=== PATIENT | female | born 1965 | race African-American/Black ===

== ENCOUNTER 2017-05-29 12:58 | Inpatient (IN) | payer OTHER ==
[~2017-05-29] VITALS: Ht 177.8 cm; Wt 162.0 kg
[~2017-05-29 12:58] MED LIST: DAILY MULTIPLE1 EACH PO; HYDROMORPHONE HC4 MG PO; IRON18 MG PO; METFORMIN HCL500 M1 PO; METFORMIN HCL500 MG PO; MILK OF MA400 MG/5 M PO; MIRALAX17 GM PO; NAPROSYN500 MG PO; NAPROXEN500 MG; NAPROXEN500 MG PO; NORCO 5-325 TA1 EACH; NORCO 5-325 TA1 EACH PO; OXYCODONE HCL5 MG PO; ROBAXIN-750750 MG PO; TRAMADOL HCL50 MG PO; VITAMIN C500 M1 PO; XARELTO10 MG PO
--- NOTE | 2017-05-29 16:59 | NUR ---
PATIENT IS A DIRECT ADMIT FOR DR PERERA. PATIENT TO FLOOR VIA WC. TRANSFER TO BED WITH NO DIFFICULTY. PATIENT REPORTED RUQ ABD PAIN. IV STARTED BY CHERIE STAHL. IV FLUID STARTED. PATIENT WAS MEDICATED FOR PAIN. PATIENT DENIES NAUSEA AT THIS TIME. ADMISSION ASSESSMENT COMPLETED. SKIN INTACT, LUNGS CLEAR. ABD SOFT AND TENDER TO PALPATION. PATIENT ORIENTED TO ROOM,PATIENT WAS ALSO EDUCATED ABOUT PAIN CONTROL AND SAFETY. CALL LIGHT IN REACH.
--- NOTE | 2017-05-29 17:51 | NUR ---
DR FARLEY WAS IN TO EVALUATE PATIENT AND DISCUSS PLAN OF CARE. PLAN FOR SURGERY IN THE MORNING. PATIENT WAS MEDICATED FOR 9/10 ADB PAIN. DENIES NAUSEA AT THIS TIME.
--- NOTE | 2017-05-29 18:25 | NUR ---
PATIENT IS A DIRECT ADMIT FOR DR PERERA. PATIENT TO BE NPO AT MIDNIGHT. HAD 2L LR BOLUS. PATIENT HAD MORPHINE AND ANTIEMETIC PRN. DENIES NAUSEA. FLUID D5LR @125ML/HR. PATIENT TOLERATED CLEAR LIQUID WELL. PLAN FOR SURGERY SOMETIMES TOMORROW.
--- NOTE | 2017-05-29 19:05 | NUR ---
SHIFT REPORT RECIEVED. PATIENT RESTING IN BED. APPEARS TO BE UNCOMFORTABLE. REPORTS SEVERE PAIN. DAY SHIFT RN PROVIDED PRN PAIN MEDS PER ORDER. PATIENT WAS ABLE TO DRINK MOST OF THE LIQUIDS PROVIDED FOR DINNER. NO NAUSEA. AAOX3.
--- NOTE | 2017-05-29 20:00 | NUR ---
PATIENT CONTINUES TO APPEAR UNCOMFORTABLE, TENSE AND RESTLESS. RATES PAIN AT 8-9/10. PRN PAIN MEDS PROVIDED. PATIENT PUT ON CONTINUOUS PULSE OX. O2 SAT 97% ON RA. HEAT PACK PROVIDED FOR USE ON ABD. WILL CONTINUE TO MONITOR.
--- NOTE | 2017-05-29 20:30 | NUR ---
PATIENT REPORTS 9/10 PAIN. SHE IS RESTLESS IN THE BED AND APPEARS UNCOMFORTABLE.
--- NOTE | 2017-05-29 20:56 | NUR ---
CONTACTED TO UPDATE HIM ON POOR PAIN CONTROL FOR THIS PATIENT. NEW ORDERS FOR PRN PAIN MEDS WERE GIVEN. VERIFIED USING READ BACK METHOD. IF PAIN CONTROL IS STILL NOT ADEQUATELY ACHIVED, MD REQUEST TO BE CALLED TO DISCUSS BARN MANAGER OPTION.
--- NOTE | 2017-05-29 21:07 | NUR ---
PRN DILAUDID PROVIDED TO THE PATIENT. PATIENT UP TO THE BATHROOM, STEADY ON HER FEET. CONTINUES TO HAVE 9/10 PAIN. LUNGS ARE DIMINISHED BUT CLEAR. PATIENT ON CONTINUOUS PULSE OX, O2 SAT 97% ON RA. ABD IS MILDLY DISTENDED, TENDER IN THE RUQ & RLQ. BOWEL SOUNDS ARE ACTIVE. PATIENT HAS HAD QS OUTPUT SO FAR AND IS TOLERATING CLEAR LIQUIDS. NO NUASEA. PATIENT RESTING IN BED WITH SCDS IN USE. CALL LIGHT IN REACH. IV FLUID INFUSING, SITE WNL.
--- NOTE | 2017-05-29 21:20 | NUR ---
PATIENT FELT NAUSEOUS AND HAD 200ML OF EMESIS AND SOME MORE DRY HEAVES. PRN PHENERGAN PROVIDED. PATIENT'S SISTER IN THE ROOM. SHE REPORTS PAIN 8/10.
--- NOTE | 2017-05-29 21:37 | NUR ---
CHARGE NURSE ROUNDS, PT IN BED, C/O POOR PAIN CONTROL, WAS MEDICATED EARLIER, WITH FAIR PAIN CONTROL. PT AWARE OF NPO STATUS AFTER MIDNIGHT FOR AM SURGERY, NO OTHER REQUESTS
--- NOTE | 2017-05-29 21:50 | NUR ---
PATIENT IS RESTING IN BED. REPORTS NAUSEA HAS PASSED. PAIN IS 8/10. WILL CONTINUE TO MONITOR FOR NAUSEA PRIOR TO GIVING MORE PRN PAIN MEDS.
--- NOTE | 2017-05-29 22:20 | NUR ---
PATIENT REPORT NAUSEA HAS IMPROVED. PRN PAIN MEDS PROVIDED. PATIENT IS ON PULSE OX, O2 SAT 95% ON RA. PATIENT RESTING IN BED. CALL LIGHT IN REACH.
--- NOTE | 2017-05-29 23:15 | NUR ---
PATIENT APPEARS TO BE SLEEPING. O2 SAT 97% ON RA. RR 17. CALL LIGHT IN REACH.
--- NOTE | 2017-05-30 00:51 | NUR ---
PATIENT WOKE UP AND ROLLED OVER, CAUSING INCREASE PAIN. SHE CALLED FOR MORE PAIN MEDICATION, WHICH WAS PROVIDED TO HER. PATIENT UP TO THE BATHROOM. STEADY ON HER FEET. NO NAUSEA. PATIENT BACK TO BED. ABD IS STILL MILDLY DISTENDED, TENDER IN RUQ & RLQ. BOWEL SOUNDS ARE ACTIVE. PATIENT HAS BEEN NPO SINCE MIDNIGHT. MOUTH SWABS PROVIDED TO HER. NO OTHER NEEDS AT THIS TIME.
--- NOTE | 2017-05-30 01:14 | NUR ---
VITALS AND I&OS DONE AND CHARTED. PT NEEDS NOTHING ELSE AT THIS TIME. BEDSIDE TABLE AND CALL LIGHT IN REACH.
--- NOTE | 2017-05-30 01:30 | NUR ---
PATIENT APPEARS TO BE SLEEPING. RR 16. O2 SAT 95% ON RA. CALL LIGHT IN REACH.
--- NOTE | 2017-05-30 02:15 | NUR ---
ORACLE ARCHITECT ON THE FLOOR ASSITING WITH PATIENT CARE. PROVIDED PRN PAIN MEDS PER ORDER.
--- NOTE | 2017-05-30 03:30 | NUR ---
patient reports 8/10 pain. prn pain meds provided. patient denies other needs. call light in reach.
--- NOTE | 2017-05-30 05:17 | NUR ---
PAIN CONTROL WAS A CONCERN AT BEGINING OF THE SHIFT. NEW ORDERS FOR PRN PAIN MEDS WERE RECIEVED AND PATIENT HAS BEEN ABLE TO REST PART OF THE NIGHT. PRN PAIN MEDS GIVEN X6. NAUSEA WITH EMESIS X1, PRN PHENERGAN REDUCED THE NAUSEA. PATIENT DENIES NAUSEA THIS MORNING. SBA TO THE BATHROOM. PATIENT CALLS APPROPRIATELY. SCDS IN USE. IV FLUIDS. ABD IS MILDLY DISTENDED, TENDER IN RUQ & RLQ, BOWEL SOUNDS HYPOACTIVE. NPO SINCE MIDNIGHT. SURGERY SCHEDULED FOR 0800.
--- NOTE | 2017-05-30 06:02 | NUR ---
PATIENT REPORTS PAIN 8/10. SHE WAS SLEEPING WELL, BUT WHEN SHE AWOKE SHE HAD INCREASED PAIN. PRN PAIN MEDS PROVIDED. PRE-PROCEDURE CHECK LIST PARTIALLY COMPLETED. PATIENT GIVEN INSTRUCTION ON PRE-OP CLENSE WITH WIPES. PATIENT UP TO THE BATHROOM. FRESH ATTENDS AND GOWN PROVIDED.
--- NOTE | 2017-05-30 07:00 | NUR ---
patient reports 7/10 pain. prn pain meds provided. no nausea.
--- NOTE | 2017-05-30 07:35 | NUR ---
REPORT RECIEVED FROM CHERIE BACA. PT AWAKE AND UP TO RESTROOM. IVF RUNNING. GIVEN PAIN MEDS BY NIGHT RN AT 0700. SWITCHED BEDS FOR NON TRAPEZZE BED. LR HANGING. BS 143, INSULIN NOT GIVEN. SURGERY RN HERE TO CASEWORK MANAGER PT. WIPE DOWN DONE.
--- NOTE | 2017-05-30 09:20 | NUR ---
05/30/17 0920 Yuko Fairchild 0915 PT ARRIVED IN PACU SLEEPY. BLOOD SUGAR 142.
--- NOTE | 2017-05-30 10:34 | NUR ---
PT TO FLOOR VIA STRETCHER WITH CHERIE SHOOK. PT PAINFUL UPON SLIDING TO BED. ABLE TO DO ON OWN THOUGH. SISTER IN ROOM. STATES THE PAIN IS BETTER THAN BEFORE SURGERY. LAP SITES X4 SLIGHT AMT DRAINAGE BUT WELL APPROX. STERI STRIPS INTACT. PT DOZING INTERMITTENTLY. 3L NC DUE TO DESATS WHEN SLEEPING.
--- NOTE | 2017-05-30 11:07 | OR ---
[facility] [address] [place], [place] [address] Signed DATE OF OPERATION: 05/29/2017 SURGEON: Oksana Perera MD PREOPERATIVE DIAGNOSES: 1. Acute calculous cholecystitis. 2. Morbid obesity. POSTOPERATIVE DIAGNOSES: 1. Acute calculous cholecystitis. 2. Morbid obesity. PROCEDURES: 1. Laparoscopic cholecystectomy with intraoperative cholangiogram (prolonged difficult). 2. Surgeon-directed fluoroscopy. ANESTHESIA: General endotracheal (Sol Waldrop CRNA). INDICATION: This 52-year-old obese black woman is a patient of Stephanie Wiley and Dr. Sammy Grimm. I was called yesterday by FRANK Reaves, regarding the patient, who is having acute cholecystitis. A gallbladder ultrasound had been performed showing multiple gallstones. She has been admitted, given fluid resuscitation, intravenous antibiotics, parenteral pain medication and so forth and is now to undergo cholecystectomy preferred by laparoscopic approach. The risks of bleeding, infection, bile duct injury, need for open procedure and other unforeseen complications was reviewed in detail. She understands and wished to proceed. FINDINGS: The patient is quite morbidly obese. Predictably, there was a fair amount of fat associated with the gallbladder. The gallbladder was acutely inflamed. A stone was noted in the cystic duct as well, which was milked in a retrograde fashion and cholangiogram that was performed showed no sign of filling defects within the biliary tree otherwise. Complete cholecystectomy was accomplished without complication. The operation was prolonged, complicated, and difficult on the basis of her obesity. DESCRIPTION OF PROCEDURE: The patient was brought to the operating room and given a general endotracheal anesthetic. She had been on Ancef continually. Sequential compression device stockings Electronically Signed By: OKSANA PERERA MD 05/30/17 1107 PATIENT NAME: EDILBERTO MARY OPERATIVE REPORT DATE OF : 61 PHYSICIAN: OKSANA PERERA MD REPORT #: [id number] REPORT IS CONFIDENTIAL AND NOT TO BE RELEASED WITHOUT AUTHORIZATION [facility] [address] [place], [place] [address] Signed were used and heparin subcutaneously administered. The abdomen was prepared with a chlorhexidine solution and draped sterilely. An infraumbilical incision was made and using an open Chelsea cannula technique, pneumoperitoneum was achieved to a level of 14 mmHg of carbon dioxide gas. Intraabdominal inspection showed no sign of ascites or carcinomatosis. The apex of the gallbladder was visible and noted to be acutely inflamed. Three additional trocars were placed in usual configuration in the subxiphoid, right midclavicular, and right anterior axillary line. The gallbladder was elevated cephalad. The liver was quite remarkably normal. The adhesions to the undersurface of the gallbladder were taken down with blunt and electrocautery dissection ultimately better visualizing the infundibulum. A fair amount of fat was noted around the infundibulum and using blunt and electrocautery dissection, the area was dissected free ultimately identifying a dominant cystic artery. This was doubly clipped and divided. Ultimately, the cystic duct was identified as well and there appeared to be a bulge in the proximal portion of the cystic duct, most consistent with an intracystic duct stone. The clips were applied at the gallbladder cystic duct junction and a transverse choledochotomy made in the cystic duct. With retrograde milking technique, the stone was allowed to egress from the cystic duct itself. This was passed off the table of course. Using the Obrien-type cholangiocatheter, intraoperative cholangiography was undertaken showing free flow of contrast in the biliary tree with prompt emptying into the duodenum. There was narrowing in the region of the distal common duct, but no sign of filling defect and no impediment to flow in any way. The catheter was removed. The cystic duct was triply clipped and divided and the gallbladder dissected free in a retrograde fashion using electrocautery. The gallbladder was pexed in an endobag and extracted through the infraumbilical port site. The gallbladder was opened on the back table by the circulating nurse and had innumerable multifaceted yellow, large and small gallstones. Reinspection of subhepatic space showed no sign of bile leak, bleeding, or other problems. Excess irrigation fluid was suctioned free and the trocars were removed under direct visualization showing no sign of bleeding. The infraumbilical fascial incision was reapproximated with interrupted 0 Vicryl suture. All wounds were copiously irrigated and 20 mL of 0.25% Marcaine without epinephrine was injected locally for postoperative analgesic effect. The skin was closed with interrupted 3-0 Vicryl. Steri-Strips were applied. The patient was ultimately extubated and transferred to recovery room in good condition having suffered no complication. The operation was complicated and difficult on the basis of her obesity and extent of inflammation, but was accomplished safely. Oksana Perera MD Electronically Signed By: OKSANA PERERA MD 05/30/17 1107 PATIENT NAME: EDILBERTO MARY OPERATIVE REPORT DATE OF : 61 PHYSICIAN: OKSANA PERERA MD REPORT #: [id number] REPORT IS CONFIDENTIAL AND NOT TO BE RELEASED WITHOUT AUTHORIZATION [facility] [address], [place] [address] Signed /[facility] /[id number] cc: LUIS Reaves MD Electronically Signed By: OKSANA PERERA MD 05/30/17 1107 PATIENT NAME: EDILBERTO MARY OPERATIVE REPORT DATE OF : 61 PHYSICIAN: OKSANA PERERA MD REPORT #: [id number] REPORT IS CONFIDENTIAL AND NOT TO BE RELEASED WITHOUT AUTHORIZATION
--- NOTE | 2017-05-30 12:43 | NUR ---
CALLED DR PERERA REGARDING BS OF 163. ORDERED 4 UNITS PRN FOR BS GREATER THAN 150.
--- NOTE | 2017-05-30 13:22 | NUR ---
PT RESTING IN BED. NEW IV TO RIGHT UPPER ARM, IV LASIX GIVEN. LUNG SOUND WHICH EXPIRATORY WHEEZE AND RHONCHI, IMRPOVED FROM THIS MORNING. PT DENIES PAIN, STATES TYLENOL WAS EFFECTIVE IN CONTROLLING PAIN. NO ACUTE CHANGES. PT DENIES OTHER NEEDS AT THIS TIME.
--- NOTE | 2017-05-30 13:25 | NUR ---
PT SITTING UP IN BED. ADMINISTERED PAIN MED. AND AB. PT STATES SHE WILL GET UP AND TRY USING THE RESTROOM AFTER MED KICKS IN. PT ATE MOST OF LUNCH WITH NO NAUSEA.
--- NOTE | 2017-05-30 15:33 | NUR ---
PT APPEARS TO BE SLEEPING COMFORTABLY.
--- NOTE | 2017-05-30 17:17 | NUR ---
PT SITTING UP IN BED EATING DINNER. PT REPORTS NO NAUSEA. INSULIN WITNESSED BY CHERIE STAHL AND CHERIE ROSALES. PT APPEARS COMFORTABLE.
--- NOTE | 2017-05-30 17:44 | NUR ---
PT HAD SURGERY THIS MORNING. LAPS X4. WELL APPROX. PT PAIN CONTROLLED WITH NORCO X2 AND IV DILAUIDID RATES PAIN 6-8\10. TOLERATING ADA DIET. UO QS. O2 NC FOR DESATS WHILE SLEEPING. SBA TO RESTROOM. NO N\V.
--- NOTE | 2017-05-30 18:34 | NUR ---
GOT PATIENT A GLASS OF APPLE JUICE. AND ALSO ICE WATER.
--- NOTE | 2017-05-30 19:00 | NUR ---
SHIFT REPORT RECIEVED AT BEDSIDE. PATIENT RESTING IN BED. TOLERATING RA, O2 95%. DENIES NAUSEA. PAIN 10/20. FRIEND AT BEDSIDE. CALL LIGHT IN REACH.
--- NOTE | 2017-05-30 20:14 | NUR ---
PATIENT UP TO THE BATHROOM. STEADY ON HER FEET BUT PAINFUL WITH MOVEMENT. LAP SITES HAVE SMALL AMOUNT OF DRIED DRAINAGE. STERI STRIP ON RLQ WAS NOT IN PLACE, GAUZE APPLIED TO THIS LAP SITE. PATIENT DENIES NAUSEA. O2 SAT 94% ON RA. PATIENT DENIES NEEDS AT THIS TIME. BACK IN BED WATCHING TV.
--- NOTE | 2017-05-30 21:30 | NUR ---
EVENING MEDS GIVEN PER ORDER. ALEXIS IS RESTING IN BED. PAIN CONTINUES TO BE A SHARP CONSTANT PAIN AT 7/10. ICE PACK PROVIDED. PATIENT IS AAOX3. APPEARS UNCOMFORTABLE AND RESTLESS IN THE BED. O2 SAT 97% ON RA. LUNGS ARE CLEAR. ABD IS MODERATELY DISTENDED. BOWEL SOUNDS ACTIVE. LAP SITES HAVE NO NEW DRAINAGE AND ARE WELL APPROXIMATED. PATIENT TOLERATING ADA DIET. NO NAUSEA. SCDS IN USE.
--- NOTE | 2017-05-30 22:00 | NUR ---
BLOOD GLUCOSE WNL. NO INSULIN REQUIRED PER ORDERS.
--- NOTE | 2017-05-30 22:40 | NUR ---
PATIENT REPORTS 7/10 PAIN. PRN NORCO PROVIDED PER ORDER. PATIENT PROVIDED SOME CRACKERS TO EAT WITH THE MEDICATION. SHE ALSO REQUEST A SANDWICH BOX. SYSTEMS PROJECT MANAGER NOTIFIED FOR THIS. PATIENT HAS NO OTHER NEEDS. REPORTS SOME PAIN RELIEF FROM THE ICE PACK.
--- NOTE | 2017-05-30 23:00 | NUR ---
SANDWICH BOX PROVIDED. PATIENT CONTINUES TO BE RESTLESS IN THE BED AND REPORTS PAIN 8/10. ENCOURAGED HER TO TRY TO EAT A SMALL AMOUNT AND ALLOW PO PAIN MEDS TO TAKE EFFECT. WILL CONTINUE TO MONITOR. ICE PACK REFILLED.
--- NOTE | 2017-05-30 23:30 | NUR ---
PATIENT ATE HER SNACKS WITHOUT ANY NAUSEA. PATIENT HAS BEEN COUGHING SOME AND THIS IS CAUSING INCREASED PAIN. PATIENT UNABLE TO REST. PAIN 8/10. PRN PAIN MEDS PROVIDED.
--- NOTE | 2017-05-31 01:00 | NUR ---
PATIENT RESTING EYES CLOSED. RR 17. O2 SAT 94% ON RA. CALL LIGHT IN REACH.
--- NOTE | 2017-05-31 02:22 | NUR ---
PATIENT CALLED TO USE THE BATHROOM. 1 PERSON ASSIST/ STANDBY. PATIENT IS BACK IN BED. CALL LIGHT WITHIN REACH. ICE WATER REFILLED.
--- NOTE | 2017-05-31 02:30 | NUR ---
PATIENT REPORTS PAIN 8/10 AFTER GETING UP TO USE THE BATHROOM. PRN NORCO PROVIDED. PATIENT REPORTS SOME DRAINAGE FROM LAP SITE THAT WAS ON HER GOWN AND STILL OPERATOR GIN ASSISTED HER WITH CHANGING. RN NOTED LAP SITES TO BE WNL, NO NEW DRAINAGE VISABLE. REENFORCED SECOND RLQ LAP SITE WITH GAUZE DUE TO STERI STRIP FALLING OFF. PATIENT IS STILL USING AN ICE PACK ON THIS AREA. DENIES NAUSEA.
--- NOTE | 2017-05-31 03:51 | NUR ---
PATIENT IS RESTING IN BED, WATCHING TV. REPORTS PAIN 7/10. AND SAYS SHE IS HAVIGN TROUBLE SLEEPING BECAUSE SHE IS HAVING HOT AND COLD FLASHES. DENIES NEED FOR ROOM TEMP TO BE CHANGED OR WARM BLANKET. DENIES ANY NEEDS. ICE PACK IN USE.
--- NOTE | 2017-05-31 05:30 | NUR ---
PATIENT RESTING IN BED WATCHING TV. STATED SHE SLEPT FOR A LITTLE WHILE. PAIN 10/20. PRN TORADOL PROVIDED. IV FLUIDS REPLACED, IV SITE WNL. COFFEE PROVIDED PER PATIENT REQUEST. NO OTHER REQUEST.
--- NOTE | 2017-05-31 05:46 | NUR ---
PATIENT SLEPT ON AND OFF THROUGHOUT THE NIGHT. PAIN CONSISTENTLY 7-8/10. PRN NORCO X3. PRN TORDOL AND DILAUDID X2. NO NAUSEA. ATE DINNER AND SOME SNACKS. ORAL INTAKE IS GOOD. SHE WOULD LIKE TO SHOWER TODAY. SBA TO BATHROOM. LAP SITE X4, WNL. GAUZE REENFORCED RLQ SITES X2. BOWEL SOUNDS ARE ACTIVE. ABD IS MODERATELY DISTENDED AND TENDER. SCDS IN USE. IV FLUIDS INFUSING, SITE WNL.
--- NOTE | 2017-05-31 06:42 | NUR ---
PRN PAIN MEDS PROVIDED FOR PAIN /10. PATIENT ORDERED BREAKFAST AND VISHAL LOAIZA COMPLETED HER VS. PATIENT UP TO THE BATHROOM.
--- NOTE | 2017-05-31 07:18 | NUR ---
REPORT RECEIVED FROM CHERIE BACA. PT SITTING UP IN BED WATCHING TV. APPEARS COMFORTABLE, BUT STATES PAIN IS CONSISTENTLY 7/10. PT DENIES OTHER NEEDS AT THIS TIME.
--- NOTE | 2017-05-31 07:49 | NUR ---
PATIENT WAS UP WAITING FOR BREAKFAST, BOARDS UPDATED, AM CARE DONE.
--- NOTE | 2017-05-31 09:54 | NUR ---
PT GIVEN A HOT PACK. VS TAKEN AND DOCUMENTED. PT WOULD LIKE A PAIN PILL AND HAS NO OTHER NEEDS. WILL INFORM RN OF PT REQUEST. CALL LIGHT IS IN REACH.
--- NOTE | 2017-05-31 10:03 | NUR ---
PT CALLED FOR PAIN MEDICATION. STATES THAT AFTER SHE ATE HER BREAKFAST WHICH INCLUDED [place] AND EGGS HER PAIN INCREASED. ADVISED HER TO TAKE IT EASY ON INTAKE, PARTICULARLY HIGH FAT ITEMS FOR A LITTLE WHILE. PT ALSO SAT UP IN BED WITHOUT USING BED AND WAS QUITE SORE. ADMINISTERED MEDS AND ASSESSMENT DONE. PT DENIES FURTHER CONCERNS.
--- NOTE | 2017-05-31 12:14 | NUR ---
4 UNITS INSULIN WITNESSED BY CHERIE STAHL AND CHERIE HAIR. PT SITTING UP IN BED EATING LUNCH. APPEARS COMFORTABLE. NO OTHER NEEDS AT THIS TIME.
--- NOTE | 2017-05-31 13:13 | NUR ---
DR PERERA IN TO SEE PT. WILL INCREASE PAIN MEDICATION DOSE AND MAY BE ABLE TO GO HOME LATER THIS AFTERNOON.
[2017-05-31] MEDS ORDERED: HYDROCODON-ACE1 EAC8 PO (13:15)
[2017-05-31] MEDS ORDERED: MOTRIN IB200 MG PO (13:18)
--- NOTE | 2017-05-31 13:31 | NUR ---
PT UP TO BATHROOM. ACTIVITY ENCOURAGED. PT DENIES SOB OR DIZZINESS. PT TOLERATED WELL. SITTING UP IN BED.
--- NOTE | 2017-05-31 14:10 | NUR ---
PAIN MEDS ADMINISTERED PER ORDER. HEAT PACK REPLACED ON ABDOMEN. PT SITTING UP IN BED. ENCOURAGED TO AMBULATE.
--- NOTE | 2017-05-31 14:48 | NUR ---
PT STATES THE PAIN MEDICATION IS STARTING TO KICK IN AND WILL GET UP AND WALK IN A BIT. HOLDING BLANKET TO STOMACH FOR SUPPORT WHEN SHE COUGHS. INCISIONS WELL APPROX. WITH NO NEW DRAINAGE.
--- NOTE | 2017-05-31 16:06 | NUR ---
PT REPORTS PAIN IS STILL 7/10. CONSISTENTLY RATES 7-8/10 WHILE RESTING. APPEARS COMFORTABLE. ON PHONE AND MOVING AROUND BED INDEPENDENTLY
--- NOTE | 2017-05-31 16:32 | NUR ---
PT UP TO WALK IN HALLWAY X1 LAP AROUND UNIT. STOPPED TO TAKE BREAK X2. PT REPORTS NOT USUALLY WALKING LONG DISTANCES. DENIED SOB AND DIZZINESS DURING WALK. REPORT MILD DIZZINESS WHEN BACK TO ROOM. WASHED FACE AND BRUSHED TEETH INDEPENDENTLY. LINENS STRAIGHTENED. PT STATES WOULD LIKE TO STAY FOR NIGHT. PAIN STILL 7-11/20.
--- NOTE | 2017-05-31 18:11 | NUR ---
PT SBA TO BATHROOM. UP X1 LAP IN HALLWAY, NEEDED BREAKS DUE TO BASELINE LOW ACTIVITY. PERFORMED SELF-CARE INDEPENDENTLY TODAY. NORCO INCREASED. GETS X2 10/325. STILL CONSISTENTLY RATES PAIN 7-8/10. BUT APPEARS COMFORTABLE. PLAN TO DC TO HOME WITH SISTERS TOMORROW.
--- NOTE | 2017-05-31 19:00 | NUR ---
SHIFT REPORT RECIEVED AT BEDSIDE. PATIENT RESTING IN BED WATCHING TV. FRESH WATER PROVIDED. NO OTHER NEEDS AT THIS TIME. CALL LIGHT IN REACH.
--- NOTE | 2017-05-31 19:48 | NUR ---
CALL PLACED TO DR PERERA AND INFORMED HIM PT HAD NOT DISCHARGED HOME. WANTS TO LEAVE [place]. NO NEW ORDERS.
--- NOTE | 2017-05-31 20:34 | NUR ---
PATIENT UP TO THE BATHROOM. SBA. SALINE LOCKED PATIENT. ORAL INTAKE IS ADEQUATE AND OUTPUT IS QS. PATIENT HAS A COUGH, SHE HAS BEEN SPLINTING WHEN COUGH. ABD IS MODERATELY DISTENDED. TENDER. BOWEL SOUNDS ACTIVE. PATIENT REPORTS PASSING GAS. NO NAUSEA. APPETITE IS GOOD. SCDS IN USE. LAP SITES X4 ARE WNL, NO NEW DRAINAGE. PATIENT REPORTS PAIN 7/10. NO OTHER NEEDS AT THIS TIME. ICE PACK PROVIDED.
--- NOTE | 2017-05-31 22:30 | NUR ---
PRN PAIN MEDS GIVEN FOR 7/10 PAIN. FRESH ICE PACK PROVIDED. NO OTHER NEEDS AT THIS TIME.
--- NOTE | 2017-06-01 00:35 | NUR ---
patient appears to be sleeping. rr 17. call light in reach.
--- NOTE | 2017-06-01 01:30 | NUR ---
[facility] VISHAL LOAIZA ASSISTED PATIENT.
--- NOTE | 2017-06-01 03:00 | NUR ---
PRN NORCO GIVEN FOR 8/10 PAIN. PATIENT WAS UP TO THE BATHROOOM AND HAS BEEN COUGHING, THIS IS CAUSING INCREASED SHARP PAIN.
--- NOTE | 2017-06-01 04:34 | NUR ---
PATIENT SLEPT ON AND OFF THROUGHOUT THE NIGHT. SBA. SCDS. IV SL. TOLERATING ADA DIET AND ORAL FLUIDS. LAP SITES X4, WNL. NO NEW DRAINAGE. PAIN CONSISTENTLY 7-8/10. PRN NORCO GIVEN X3.
--- NOTE | 2017-06-01 05:00 | NUR ---
PATIENT UP TO THE BATHROOM WHILE COLD ROLLING SUPERVISOR IN ROOM. COMPLAINING OF 9/10 PAIN. DISCUSSED AVAILABLE TIME FRAME FOR PAIN MEDICATION. PATIENT RESTING IN BED NOW.
--- NOTE | 2017-06-01 07:20 | NUR ---
PATIENT UP TO BATHROOM WITH STAND BY ASSIST. PATIENT UP TO SINK TO WASH HANDS AND FACE THEN TO CHAIR. ORDERED PATIENT HER BREAKFAST. FRESH ICE PACK, WARM BLANKET, AND ICE WATER GIVEN. CALL BUTTON IN REACH. NO OTHER NEEDS AT THIS TIME.
--- NOTE | 2017-06-01 07:42 | NUR ---
PATIENT UP TO RECLINER THIS MORNING, LUNG SOUNDS CLEAR. LAP SITES C/D/I. PATIENT REPORTS PAIN AT 6 WHEN STILL BUT WHEN COUGHING AND MOVING REPORTS PAIN AT 8/10 ON PAIN SCALE. ICE TO ABDOMEN. CBG 101, NO INSULIN COVERAGE NEEDED. DISCUSSED POC FOR DAY. FULL BODY ASSESMENT DONE.
--- NOTE | 2017-06-01 07:54 | NUR ---
CALL TO DR. PERERA IN REGARDS TO PATIENT NOT HAVING A BM SINCE , POST OP 2 DAYS NOW AND FOR PAIN CONTROL RATES PAIN 8/10 WITH MOVMENT PAIN MEDICAITON ADMINISTERED 0700 THIS MORNING.
--- NOTE | 2017-06-01 08:04 | NUR ---
DR. PERERA RETURNED PHONE CALL, DISCUSSED PATIENT OPIATE HX. DISCUSSED CONCERNS OF PATIENT PAIN PROPORTION WITH PAIN MEDICAITON ADMINISTERED. BOWEL TONES ACTIVE, BUT LOCATES PAIN TO RLQ TO MID QUADRANT. NEW ORDERS FOR CBC AND BMP TO BE DRAWN NOW.
--- NOTE | 2017-06-01 09:32 | NUR ---
DR. PERERA TO FLOOR. THIS NURSE PUT IN WRONG ORDER FROM CHEM LAB TO BE DRAWN, CHANGED TO CHEM 20. DR. PERERA QUESTIONED WHY MOTRIN HAS NOT BEEN ADMINISTERED PRN FOR PAIN CONTROL SINCE PATIENT WAS ADMITTED, ADMINISTERED 600 MG PO MOTRIN RIGHT AWAY AND CALLED LAB TO REQUEST ADD ON FOR OTHER LAB VALUES NEEDED FOR A CHEM 20.
--- NOTE | 2017-06-01 09:39 | NUR ---
PATIENT SITTING IN CHAIR THIS CATASTROPHE CLAIMS SUPERVISOR PUT FRESH LINENS ON BED. IN ROOM TO TALK TO PATIENT. 1 PERSON ASSIST TO BATHROOM, PATIENT NEEDED AOTHER PAD FOR UNDERWEAR. THIS CATASTR[place]HE CLAIMS SUPERVISOR ASSISTED PATIENT BACK TO BED. RN IN ROOM TO GIVE MEDS. FRESH ICE WATER, NEW ICE PACK GIVEN. VITALS DONE AND ROOM TIDIED. NO OTHER NEEDS AT THIS TIME.
--- NOTE | 2017-06-01 09:43 | NUR ---
ADDRESSED BOWEL CARE WITH DR. PERERA. PATIENT UNABLE TO HAVE BM SINCE 15, PATIENT PASSING GAS. HAS BEEN TAKING LARGE AMOUNTS OF PAIN MEDICATION FOR PAIN CONTROL. VERBAL ORDER FOR MILK OF MAG.
--- NOTE | 2017-06-01 12:10 | NUR ---
1 PERSON ASSIST FROM BATHROOM BACK TO BED. FRESH WATER GIVEN. CALL LIGHT IN REACH, NO OHTER NEEDS AT THIS TIME.
--- NOTE | 2017-06-01 13:00 | NUR ---
PATIENT REPORTS PAIN FEELS IMPROVED WITH MOTRIN, STATES " I THINK I AM READY TO GO HOME, MY SISTER IS ON HER WAY IN". PROVIDED SISTER WITH SCRIPT TO FILL. PATIENT RESTING BACK IN BED. RATES PAIN 5/10 ON PAIN SCALE.
--- NOTE | 2017-06-01 14:36 | NUR ---
PATIENT SITTING UP IN BED, VITALS DONE. NEW ICE IN ICE PACK, FRESH ICE IN WATER. CALL LIGHT IN REACH. PATIENT MOANING QUITE A LOT. NO OTHER NEEDS AT THIS TIME.
--- NOTE | 2017-06-01 16:45 | NUR ---
PROVIDED PATIENT WITH DISCHARGE EDUCATION, DISCUSSED MEDICATIONS THAT PATIENT IS TAKING. NOTED NO MED RECONCILIATION WAS DONE. ALERTED LOUISA IN PHARMACY, AND HAD [facility] FAX MEDICATION LISTS TO FLOOR. PROVIDED PATIENT WITH NORCO BEFORE LEAVING HOME, AND ICE PACKS. PATIENT VERBALIZED UNDERSTANDING TO SIDE EFFECTS, AND PROVIDED EDUCATION WITH PREVENTING CONSTIPATION. ALSO DISCUSSED S/S OF INFECTION. VS STABLE. 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
--- NOTE | 2017-06-01 16:57 | NUR ---
Note of importance: Unfortunately, patient's medications were not reconciled by pharmacist until patient was preparing for discharge. Prior to discharge, pharmacist discovered that the patient's current medication profile included acute pain medications filled almost two years ago. Patient is not currently taking ANY pain medications. Her only chronic medication is metformin. Due to the inacurate medication reconciliation report, the narcotic pain medication usage of this patient was misrepresented.
--- NOTE | 2017-06-01 17:28 | NUR ---
CALLED AND INFORMED DR. PERERA OF ERROR IN NOT HAVING MEDICATIONS UPDATED ON PROFILE AND MADE HIM AWARE THAT PATIENT IS NOT AN EVERYDAY OPIATE USER. VERBALIZED UNDERSTANDING.
--- NOTE | 2017-06-02 08:34 | DS ---
[facility] [address] [place], [place] [address] Signed ADMISSION DATE: 05/29/2017 DISCHARGE DATE: 06/01/2017 REASON FOR ADMISSION: This 52-year-old morbidly obese black woman is admitted directly to the hospital for acute calculous cholecystitis. She is a patient of FRANK Reaves from Dr. Grimm's office and since Thursday (day of admission Thursday), she has had significant right upper abdominal and epigastric pain. She did not seek medical attention until 3 days prior to admission, where she was noted to have worsening pain. She has had issues of diverticulitis in the past and thought it may be related to that. She was seen by FRANK Reaves as an outpatient and subsequently underwent a gallbladder ultrasound, which showed multiple gallstones, but no thickened gallbladder wall. She was markedly uncomfortable and is admitted for further evaluation and care as a direct admit upon the referral of FRANK Reaves. PERTINENT PHYSICAL EXAMINATION: GENERAL: Very large black woman, who looks to be quite uncomfortable. She does not look systemically toxic. MOUTH: Mucous membranes are dry. NECK: Trachea midline. CHEST: Clear. HEART: Regular without murmur. ABDOMEN: Obese, but soft. There is tenderness in right upper abdomen, but no sign of mass. No ascites. LABORATORY STUDIES: Showed a white count of 10.2 and hematocrit 41.3. Chem profile was normal. HOSPITAL COURSE: She was admitted, given fluid resuscitation, intravenous antibiotics, and parenteral pain medication. She had a fair amount of pain. She was somewhat clinically dehydrated upon admission. The following morning on Thursday, she underwent laparoscopic cholecystectomy with intraoperative cholangiogram. She was found to have acutely inflamed gallbladder and normal cholangiogram. Notably, there was a stone in the cystic duct, which was removed with retrograde milking of the duct. Remaining cholangiogram was normal. The gallbladder once excised showed innumerable yellow mulberry and multifaceted gallstones. Electronically Signed By: OKSANA PERERA MD 06/02/17 0834 PATIENT NAME: EDILBERTO MARY DISCHARGE SUMMARY DATE OF : 61 PHYSICIAN: OKSANA PERERA MD REPORT #: [id number] REPORT IS CONFIDENTIAL AND NOT TO BE RELEASED WITHOUT AUTHORIZATION [facility] [address] [place] [id number] Signed The liver was normal in appearance. Postoperative course was marked by incisional pain, probably worsened by her underlying chronic pain syndrome. She was maintained with intravenous antibiotics as well as parenteral pain medication and also oral medication including Motrin, which was particularly helpful to her. By the time of discharge, she is ambulating well, tolerating a regular diet, had tolerable incisional pain and no evidence of wound problems. A CBC and a Chem profile performed the day of discharge showed no untoward findings. DISCHARGE MEDICATIONS: Her discharge medications will include Elizabeth 10/325, one to two tablets p.o. q.4 hours p.r.n. pain #14, also Motrin 600 mg p.o. q.6 hours as needed for pain. She will resume her usual medication of vitamin C 500 mg daily, metformin ER 500 mg q.day in time, oxycodone 5 mg p.o. q.3 hours as needed for pain, milk of magnesia 30 mL p.o. h.s. as needed for constipation, also MiraLAX 17 g daily as well as multivitamin one p.o. daily. She will hold Naprosyn 500 mg b.i.d. while taking the Motrin and is permitted to resume her tramadol 50 mg p.o. q.6 hours as needed for back pain. She will additionally take Robaxin 750 mg p.o. 4 times a day as needed for breakthrough back pain. We are hopeful and optimistic that early some of her back pain will be mitigated by having cholecystectomy for symptomatic gallstones. DISCHARGE DIAGNOSES: 1. Acute calculous cholecystitis. 2. Morbid obesity. 3. Chronic back pain and probable chronic pain syndrome. 4. Low-grade diabetes without need for insulin. FOLLOWUP PLAN: She is return to see me in approximately a month. She is instructed to walk on a daily basis. She should lift no more than 20 pounds for 2 weeks. Oksana Perera MD /[facility] /[id number] Electronically Signed By: OKSANA PERERA MD 06/02/17 0834 PATIENT NAME: EDILBERTO MARY DISCHARGE SUMMARY DATE OF : 61 PHYSICIAN: OKSANA PERERA MD REPORT #: [id number] REPORT IS CONFIDENTIAL AND NOT TO BE RELEASED WITHOUT AUTHORIZATION [address] [address] Signed cc: LUIS Reaves MD Electronically Signed By: OKSANA PERERA MD 06/02/17 0834 PATIENT NAME: EDILBERTO MARY DISCHARGE SUMMARY DATE OF : 61 PHYSICIAN: OKSANA PERERA MD REPORT #: [id number] REPORT IS CONFIDENTIAL AND NOT TO BE RELEASED WITHOUT AUTHORIZATION
--- NOTE | 2017-06-02 08:34 | HP ---
[facility] [address] [place], [place] [address] Signed ADMISSION DATE: 05/29/2017 REASON FOR ADMISSION: Acute calculous cholecystitis. HISTORY: This 52-year-old large black woman is admitted directly to the hospital for acute calculous cholecystitis. She was a patient of FRANK Reaves from Dr. Grimm's office and has had since Thursday (today is Thursday) significant right upper abdominal and epigastric pain. She did not seek medical attention until 3 days ago when she has worsening persistent pain. She says she has an ongoing issue of diverticulitis and thought this may be related to that. She was seen by Stephanie Wiley as an outpatient and subsequently underwent gallbladder ultrasound today, which showed multiple gallstones and not a thickened gallbladder wall, but findings clinically consistent with acute cholecystitis. On the basis of this, I directly have admitted her to the hospital for further evaluation and care. PAST MEDICAL HISTORY: Includes gdx-iurqguu-fzovslali diabetes mellitus. She also has obesity. Her most recent blood sugar was 88. She has undergone left total knee arthroplasty in July 2015 and prior right knee arthroplasty as well. This was by Dr. Naveed Parisi. REVIEW OF SYSTEMS: She denies any shortness of breath or chest pain. She is having no dysphagia, dysuria. Denies any hematemesis or blood per rectum. Her pain is mostly in the right upper abdomen extending into the right posterior thoracic area. SOCIAL HISTORY: She lives with some of her sisters in the [place] area. One of her other sisters (Ms. Jaime) attends to her at this time. She does not work to my knowledge. CURRENT MEDICATIONS: Include: 1. Vitamin C 500 mg daily. 2. Dilaudid 4 mg tablet p.o. p.r.n. back pain. 3. Milk of magnesia 30 mL p.o. at bedtime as needed for constipation. 4. Metformin ER 500 mg NM daily. 5. Robaxin 750 p.o. q.i.d. for moderate breakthrough pain of her back. 6. Daily multivitamin. Electronically Signed By: OKSANA PERERA MD 06/02/17 0834 PATIENT NAME: EDILBERTO MARY HISTORY AND PHYSICAL DATE OF : 61 PHYSICIAN: OKSANA PERERA MD REPORT #: [id number] REPORT IS CONFIDENTIAL AND NOT TO BE RELEASED WITHOUT AUTHORIZATION [facility] [address] [place], [place] [address] Signed 7. Naprosyn 500 mg p.o. b.i.d. ALLERGIES: She is considered to have a latex allergy (skin irritation). PHYSICAL EXAMINATION: GENERAL: Large black woman, who looks to be quite uncomfortable at this time. She does not look systemically toxic. HEENT: Mucous membranes are dry. NECK: Trachea is midline. There is no carotid bruit. CHEST: Clear. HEART: Regular without murmur. ABDOMEN: Obese, but soft. There is tenderness in the right upper abdomen, but no palpable mass. No sign of ascites. EXTREMITIES: Show no clubbing, cyanosis, or edema. Her incisions over her knees consistent with total knee arthroplasty, which were well healed. LABORATORY DATA: Her lab studies from 2 days ago were not here, and other labs will be obtained. I have reviewed the ultrasound with Dr. Somers, radiologist showing multiple stones and somewhat irregular mucosal changes of the gallbladder itself. ASSESSMENT: She has acute calculous cholecystitis, for which further evaluation and care has been initiated. For this evening, intravenous fluids, parental pain medication, IV antibiotics and so forth will be used. We will plan tomorrow (Thursday) to perform cholecystectomy once our resuscitative parameters have been met. A sliding scale for insulin may be beneficial in her case whether or not a formal hospitalist consult will be necessary is uncertain. We discussed the issues related to the gallbladder and plan for cholecystectomy. The risks of bleeding, infection, bile duct injury, need for open procedure were all reviewed in detail. The patient manual be given in this regard as well. MD AYSE Rojo/ABBYL Electronically Signed By: OKSANA PERERA MD 06/02/17 0834 PATIENT NAME: EDILBERTO MARY HISTORY AND PHYSICAL DATE OF : 61 PHYSICIAN: OKSANA PERERA MD REPORT #: [id number] REPORT IS CONFIDENTIAL AND NOT TO BE RELEASED WITHOUT AUTHORIZATION [facility] [address] [place], [place] [address] Signed /[id number] cc: Stephanie Wiley PA-C Electronically Signed By: OKSANA PERERA MD 06/02/17 0834 PATIENT NAME: EDILBERTO MARY HISTORY AND PHYSICAL DATE OF : 61 PHYSICIAN: OKSANA PERERA MD REPORT #: [id number] REPORT IS CONFIDENTIAL AND NOT TO BE RELEASED WITHOUT AUTHORIZATION
--- NOTE | 2017-06-02 08:34 | DS ---
[facility] [address] [place], [place] [address] Signed ADMISSION DATE: 05/29/2017 DISCHARGE DATE: 05/31/2017 REASON FOR ADMISSION: This 52-year-old morbidly obese black woman is a patient of FRANK Reaves and Dr. Sammy Grimm. I was called on May 28 in the afternoon regarding the patient was having right upper abdominal pain and a recent gallbladder ultrasound showed multiple gallstones. She was admitted for further evaluation and care. PHYSICAL EXAMINATION: GENERAL: Morbidly obese, black woman, who is quite uncomfortable with right upper abdominal pain. She does not look systemically toxic, though she was clinically dehydrated. Clinical examination, large black woman with rather significant right upper abdominal pain, but without sign of systemic toxicity. HEENT: Trachea is midline. Mucous membranes were dry.Actions CHEST: Clear. HEART: Regular without murmur. ABDOMEN: Obese, but markedly tender in the epigastric and right subcostal area. There is no sign of ascites or mass. EXTREMITIES: Showed no clubbing, cyanosis, or edema. LABORATORY STUDIES: Showed a white count of 10.2, hematocrit 41.3. Liver enzymes were normal. Blood glucose 103, elevated AST and ALT was noted. Alkaline phosphatase normal. Creatine kinase was 331. CK-MB mass was 5.88. Troponin was less than 0.010. HOSPITAL COURSE: She was admitted with the findings of acute cholecystitis and gallbladder ultrasound that was performed, had confirmed multiple gallstones. She was fluid resuscitated given intravenous antibiotics, parenteral pain medication, and yet still had rather significant epigastric and right subcostal pain despite intensive efforts to mitigate this with medication. On Thursday morning, 05/30/2017 she underwent laparoscopic cholecystectomy with intraoperative cholangiogram. The gallbladder was found to be chronically inflamed. There were innumerable small and medium size yellow multifaceted gallstones. Notably, a small stone was noted in the cystic duct, which was extracted through retrograde milking of the duct. Cholangiogram was otherwise normal. Postoperatively, she had marked improvement of her symptoms, but I suspect given her chronic pain problems and long-standing use of Percocet on a routine basis. Additional discomfort less responsive to atypical dose of Dumfries was noted. Her Dumfries medication will be increased in dose. Electronically Signed By: OKSANA PERERA MD 06/02/17 0834 PATIENT NAME: EDILBERTO MARY DISCHARGE SUMMARY DATE OF : 61 PHYSICIAN: OKSANA PERERA MD REPORT #: [id number] REPORT IS CONFIDENTIAL AND NOT TO BE RELEASED WITHOUT AUTHORIZATION [facility] [address] [place], [place] [address] Signed She is eating well now. Her incisions are healing well. It is anticipated she will be discharged today after increase in her dose of Dumfries formulation to 10/325 (1-2 p.o. q.4 hours p.r.n. pain). She will resume her usual Percocet in the near future as well. Reviewed the need to avoid excessive Tylenol and explained that in detail. FOLLOWUP PLAN: She is return to see me in approximately 4 weeks. Motrin will be used as well for pain medication. Given her likely tolerance to opiates. DISCHARGE MEDICATIONS: Will include: 1. Resumption of metformin 500 mg p.o. daily. 2. Magnesium hydroxide (milk of magnesia 30 mL p.o. at bedtime as needed. 3. Motrin 600 mg p.o. q. 6 hours p.r.n. pain. 4. Dumfries 10/325 1-2 tabs p.o. q. 6 hours p.r.n. pain #14. 5. Vitamin C 500 mg p.o. daily. 6. Robaxin 750 p.o. q.i.d. as needed for breakthrough pain and muscle spasms. 7. Multivitamin one tablet p.o. daily. 8. Naprosyn 500 mg p.o. b.i.d. when acute surgical pain has resolved from current operation. 9. Resumption of oxycodone 5 mg p.o. q.3 hours p.r.n. moderate pain, increasing to 15 mg p.o. q.6 hours for severe pain. 10. MiraLAX 1 packet daily. 11. Tramadol 50-100 mg p.o. q.6 hours p.r.n. back pain. DISCHARGE DIAGNOSES: 1. Acute cholecystitis with multiple gallstones, status post laparoscopic cholecystectomy with intraoperative cholangiogram prolonged, related to obesity on May 30, 2017. 2. Chronic back pain. 3. History of persistent pain problems with maintenance doses of Naprosyn and oxycodone. MD AYSE Rojo/BARBER Electronically Signed By: OKSANA PERERA MD 06/02/17 0834 PATIENT NAME: EDILBERTO MARY DISCHARGE SUMMARY DATE OF : 61 PHYSICIAN: OKSANA PERERA MD REPORT #: [id number] REPORT IS CONFIDENTIAL AND NOT TO BE RELEASED WITHOUT AUTHORIZATION [facility] [address] [facility] [place], [place] [address] Signed /[id number] cc: Stephanie Wiley PA-C Electronically Signed By: OKSANA PERERA MD 06/02/17 0834 PATIENT NAME: EDILBERTO MARY DISCHARGE SUMMARY DATE OF : 61 PHYSICIAN: OKSANA PERERA MD REPORT #: [id number] REPORT IS CONFIDENTIAL AND NOT TO BE RELEASED WITHOUT AUTHORIZATION
== END 2017-06-01 16:44 | disposition home or self-care (01) | DRG 419 ==
LOC: EDSTATUS 12:58 → MS 14:33
PROVIDERS: ADMIT Surgery
PROC: BF00YZZ Plain Radiography of Bile Ducts using Other Contrast (ICD-10-PCS; principal; 2017-05-29)
PROC: 0FT44ZZ Resection of Gallbladder, Percutaneous Endoscopic Approach (ICD-10-PCS; principal; 2017-05-29)
DX: K81.0 Acute cholecystitis (principal); E66.01 Morbid (severe) obesity due to excess calories; E11.9 Type 2 diabetes mellitus without complications; Z79.84 Long term (current) use of oral hypoglycemic drugs; Z96.653 Presence of artificial knee joint, bilateral; G89.29 Other chronic pain
CPT/HCPCS: 00790; 36415; 74300; 80048; 80053; 82247; 82465; 83615; 83690; 83735; 84100; 84478; 84550; 85025; 88304; J0690; J1100; J1170; J1644; J1885; J2270; J2405; J2550; J2704; J3010; J7120; Q9967

== ENCOUNTER 2020-01-11 16:25 | Emergency (ER) | payer OTHER ==
[~2020-01-11] VITALS: Ht 177.8 cm; Wt 148.4 kg
[~2020-01-11 16:25] MED LIST changes: +HYDROCODON-ACE1 EAC8 PO; +MOTRIN IB200 MG PO
[2020-01-11] MEDS ORDERED: GLIPIZIDE5 MG PO (16:46)
[2020-01-11] MEDS ORDERED: OXYBUTYNIN CHLOR5 MG PO (16:47)
[2020-01-11] MEDS ORDERED: NORCO 7.5-3251 EACH PO (18:15)
[2020-01-11] MEDS ORDERED: ROBAXIN-750750 MG PO (18:15)
[2020-01-11] MEDS ORDERED: LIDODERM1 EACH TOP (18:15)
== END 2020-01-11 18:28 | disposition home or self-care (01) ==
LOC: ED 16:25
DX: S39.012A Strain of muscle, fascia and tendon of lower back, initial encounter (principal); X50.9XXA Other and unspecified overexertion or strenuous movements or postures, initial encounter; E11.9 Type 2 diabetes mellitus without complications; Z91.040 Latex allergy status; Z79.899 Other long term (current) drug therapy
CPT/HCPCS: 96372; 99283; A9270; J1885

== ENCOUNTER 2021-12-25 20:30 | Emergency (ER) | payer OTHER ==
[~2021-12-25] VITALS: Ht 177.8 cm; Wt 158.2 kg
[~2021-12-25 20:30] MED LIST changes: +GLIPIZIDE5 MG PO; +LIDODERM1 EACH TOP; +NORCO 7.5-3251 EACH PO; +OXYBUTYNIN CHLOR5 MG PO
[2021-12-25] MEDS ORDERED: CYCLOBENZAPRINE10 MG PO (22:45)
== END 2021-12-25 23:02 | disposition home or self-care (01) ==
LOC: ED 20:30
DX: S06.0X1A Concussion with loss of consciousness of 30 minutes or less, initial encounter (principal); M54.12 Radiculopathy, cervical region; W22.8XXA Striking against or struck by other objects, initial encounter; E11.9 Type 2 diabetes mellitus without complications; M19.90 Unspecified osteoarthritis, unspecified site; Z91.040 Latex allergy status
CPT/HCPCS: 70450; 72040; 96372; 99284-25; J1885; J3360

== ENCOUNTER 2023-07-25 05:59 | Emergency (ER) | payer OTHER ==
[~2023-07-25] VITALS: Ht 177.8 cm; Wt 178.0 kg
[~2023-07-25 05:59] MED LIST changes: +CYCLOBENZAPRINE10 MG PO
[2023-07-25] MEDS ORDERED: ADENOSINE 3 MG/ML VIAL IV ONE ×2 (06:15→07:30)
[2023-07-25] MEDS ORDERED: ASPIRIN 81 MG CHEW PO ONE (06:15)
[2023-07-25] MEDS ORDERED: ADENOSINE 3 MG/ML VIAL ONE (06:17)
[2023-07-25] MEDS ORDERED: DILTIAZEM HCl/D5W 100 ML IV ONE (06:30)
[2023-07-25] MEDS ORDERED: dilTIAZem HCL 25 MG/5 ML VIAL IV ONE (06:30)
[2023-07-25 06:32] LABS: HEMOGLOBIN 14.3 g/dL (12.0-18.0); MCH 28.9 (27-36); MCHC 32.6 g/dl (30-36); MCV 88.8 fl (81-99); PLATELET COUNT 387 K/uL (140-440); RBC 4.95 M/ul (4.3-5.7); RDW 14.9 (10.5-15.0)
[2023-07-25] MEDS ORDERED: ACETAMINOPHEN 500 MG TAB PO ONE (06:45)
[2023-07-25 07:02] LABS: ALBUMIN 3.6 g/dL (3.4-5.0); ALBUMIN/GLOBULIN RATIO 0.9 (1.1-2.4); ANION GAP 14.7 (7-21); BILIRUBIN, TOTAL 0.5 ng/dL (0.2-1.0); BUN/CREATININE RATIO 9.58 (6.0-28.6); CALCIUM 9.1 mg/dL (8.5-10.1); CREATININE, SERUM 1.46 mg/dL (0.55-1.02); MAGNESIUM 1.8 mg/dL (1.8-2.4); POTASSIUM 3.7 mmol/L (3.5-5.1); PROTEIN, TOTAL 7.6 g/dL (6.4-8.2)
[2023-07-25 07:06] LABS: BASOPHILS, MANUAL DIFF 1; EOSINOPHILS, MANUAL DIFF 3; LYMPHOCYTES, MANUAL DIFF 50; MONOCYTES, MANUAL DIFF 5; NEUTROPHILS, MANUAL DIFF 41
[2023-07-25] MEDS ORDERED: ADENOSINE 3 MG/ML VIAL IV SCH (07:30)
[2023-07-25] MEDS ORDERED: LACTATED RINGER'S 1,000 ML IV ONE (07:30)
[2023-07-25 08:42] LABS: BILIRUBIN, URINE NEGATIVE (negative); BLOOD/HGB, URINE NEGATIVE (Negative); KETONE, URINE NEGATIVE (Negative); LEUK ESTERASE, URINE NEGATIVE (negative); NITRITE, URINE NEGATIVE (negative); PH, URINE 6.5 (5-7)
[2023-07-25] MEDS ORDERED: DILTIAZEM 24HR120 MG PO (08:54)
[2023-07-25 08:57] LABS: AMPHETAMINES, URINE NEGATIVE (NEGATIVE); BARBITURATES, URINE NEGATIVE (NEGATIVE); BENZODIAZEPINE, URINE NEGATIVE (NEGATIVE); BUPRENORPHINE, URINE NEGATIVE (NEGATIVE); CANNABINOID, URINE POSITIVE (NEGATIVE); COCAINE, URINE NEGATIVE (NEGATIVE); ECSTASY, URINE NEGATIVE (NEGATIVE); FENTANYL, URINE NEGATIVE (NEGATIVE); METHADONE, URINE NEGATIVE (NEGATIVE); OPIATES, URINE NEGATIVE (NEGATIVE); OXYCODONE, URINE NEGATIVE (NEGATIVE); PHENCYCLIDINE, URINE NEGATIVE (NEGATIVE)
[2023-07-25 09:06] VITALS: BP 124/71
--- NOTE | 2023-07-25 21:20 | EKG ---
[facility] [address] [facility] [place] [address] Signed Supraventricular tachycardia with occasional premature ventricular complexes Nonspecific ST and T wave abnormality Abnormal ECG Confirmed by Esther Cai MD () on 07/25/2023 9:20:46 PM Electronically Signed By: ESTHER CAI MD 07/25/232119 PATIENT NAME: EDILBERTO MARY Electrocardiogram DATE OF : 61 PHYSICIAN: ESTHER CAI MD REPORT #: [id number] REPORT IS CONFIDENTIAL AND NOT TO BE RELEASED WITHOUT AUTHORIZATION
--- NOTE | 2023-07-25 21:21 | EKG ---
[facility] [address] [facility] [place] [address] Signed Atrial fibrillation with rapid ventricular response with premature ventricular or aberrantly conducted complexes Left axis deviation Low voltage QRS Inferior infarct , age undetermined Anterolateral infarct , age undetermined Abnormal ECG Confirmed by Esther Cai MD () on 07/25/2023 9:21:43 PM Electronically Signed By: ESTHER CAI MD 07/25/232120 PATIENT NAME: EDILBERTO MARY NALLELY Electrocardiogram DATE OF : 61 PHYSICIAN: ESTHER CAI MD REPORT #: [id number] REPORT IS CONFIDENTIAL AND NOT TO BE RELEASED WITHOUT AUTHORIZATION
--- NOTE | 2023-07-25 21:23 | EKG ---
[facility] [address] [facility] [place] [address] Signed Normal sinus rhythm Cannot rule out Anterior infarct , age undetermined Abnormal ECG When compared with ECG of 25-JUL-2023 6:15, Normal sinus rhythm has replaced Atrial fibrillation with RVR Similar appearance when compared to earliest EKG 14-MAY-2020 09:19 Confirmed by Esther Cai MD () on 07/25/2023 9:23:42 PM Electronically Signed By: ESTHER CAI MD 07/25/232122 PATIENT NAME: EDILBERTO MARY Electrocardiogram DATE OF : 61 PHYSICIAN: ESTHER CAI MD REPORT #: [id number] REPORT IS CONFIDENTIAL AND NOT TO BE RELEASED WITHOUT AUTHORIZATION
[2023-09-15] MEDS ORDERED: SOTALOL80 MG PO (13:59)
[2023-09-15] MEDS ORDERED: VITAMIN D21250 MCG PO (13:59)
[2023-09-15] MEDS ORDERED: OXYCODONE HCL5 MG PO (16:26)
== END 2023-07-25 09:07 | disposition home or self-care (01) ==
LOC: ED 05:59
PROVIDERS: Internal Medicine
DX: I48.91 Unspecified atrial fibrillation (principal); I10 Essential (primary) hypertension; E11.9 Type 2 diabetes mellitus without complications; M19.90 Unspecified osteoarthritis, unspecified site; E66.9 Obesity, unspecified; Z15.89 Genetic susceptibility to other disease; Z91.040 Latex allergy status
CPT/HCPCS: 36415; 71045; 80053; 80307; 81003; 83735; 83880; 84443; 84484; 85025; 85379; 93005; 93010; 96374; 96375; 99285-25; A9270; J0153; J3490; J7121; U0002

== ENCOUNTER 2025-02-14 20:12 | Emergency (ER) | payer OTHER ==
[~2025-02-14] VITALS: Ht 180.3 cm; Wt 160.0 kg
--- OUTSIDE RECORDS SUMMARY | ~2025-02-14 | XMS | Continuity of Care Document ---
Demographics + + + | Address | [address] | | | [place] [address] | + + + | Preferred Language | Unknown | + + + | Marital Status | | + + + | Tenriism Affiliation | Unknown | + + + | Race | Unknown | + + + | Ethnic Group | Not or | + + + Author + + + | Author | [facility] | + + + | Organization | [facility] | + + + | Address | [address] | | | [place] [address] | + + + | Phone | | + + + Care Team Providers + + + + | Care Crew Leader Name | Role | Phone | + + + + Unavailable | Unavailable | + + + + Unavailable | Unavailable | + + + + Allergies No information. Encounters No information. Functional Status No information. Immunizations No information. Medications + + + + | date | description | facility | + + + + | (no date) | [facility]ifer[facility]Vitamin [facility] | | | D2) | [facility] | + + + + | (no date) | [facility]ocal[facility]ifer[facility] (Vitamin [facility] | | | D2) | [facility] | + + + + | (no date) | SOTALOL HCL | [facility] | | | | [facility] | + + + + | (no date) | SOTALOL HCL | [facility] | | | | [facility] | + + + + | (no date) | METFORMIN HCL | [facility] | | | | [facility] | + + + + | (no date) | METFORMIN HCL | [facility] | | | | [facility] | + + + + | (no date) | METFORMIN HCL | [facility] | | | | [facility] | + + + + | (no date) | METFORMIN HCL | [facility] | | | | [facility] | + + + + Problems No information. Procedures No information. Results/Labs No information. Social History +--------+ + + | date | description | facility | +--------+ + + Vital Signs No information."
[~2025-02-14 20:12] MED LIST changes: +DILTIAZEM 24HR120 MG PO; +SOTALOL80 MG PO; +VITAMIN D21250 MCG PO
[2025-02-14 20:30] LABS: BASOPHILS 0.9 % (0.1-1.2); EOSINOPHILS 4.0 % (0.7-5.8); LYMPHOCYTES 32.7 % (19.3-51.7); MCH 29.5 PG (25.6-32.2); MCHC 32.5 g/dL (32.2-35.5); MCV 90.6 fL (79.4-94.8); MONOCYTES 8.8 % (4.7-12.5); NEUTROPHILS 53.2 % (34.0-71.1); RBC 5.09 M/uL (3.93-5.22)
[2025-02-14] MEDS ORDERED: ASPIRIN 81 MG CHEW PO ONE (20:30)
[2025-02-14 20:48] LABS: ALT (SGPT) 20.0 U/L (14-59); GLOMERULAR FILTRATION RATE,EST 55.0 mL/min (>60); PROTEIN, TOTAL 8.0 g/dL (6.4-8.2); UREA NITROGEN 15.0 mg/dL (7-18)
[2025-02-14] MEDS ORDERED: NITROGLYCERIN PACKET TOP ONE (21:00)
[2025-02-14 21:32] LABS: AST (SGOT) 20.0 U/L (15-37)
[2025-02-14] MEDS ORDERED: methylPREDNISolone 4 MG HOME.PACK PO ONE (23:00)
[2025-02-14] MEDS ORDERED: ALBUTEROL SULFATE 8 GM HOME.PACK INH ONE (23:00)
[2025-02-14 23:11] VITALS: BP 145/85
--- NOTE | 2025-02-15 21:24 | EKG ---
[facility] [address] [facility] [place] [address] Signed Poor data quality, interpretation may be adversely affected Normal sinus rhythm T wave abnormality, consider lateral ischemia Abnormal ECG When compared with ECG of 15-SEP-2023 13:46, ST now depressed in Lateral leads T wave inversion now evident in Lateral leads Confirmed by Esther Cai MD () on 02/15/2025 9:23:54 PM Electronically Signed By: ESTHER CAI MD 02/15/252123 PATIENT NAME: EDILBERTO MAYR Electrocardiogram DATE OF : 61 PHYSICIAN: ESTHER CAI MD REPORT #: [id number] REPORT IS CONFIDENTIAL AND NOT TO BE RELEASED WITHOUT AUTHORIZATION
== END 2025-02-14 23:12 | disposition home or self-care (01) ==
LOC: ED 20:12
PROVIDERS: Family Medicine
DX: J84.9 Interstitial pulmonary disease, unspecified (principal); M19.90 Unspecified osteoarthritis, unspecified site; Z79.899 Other long term (current) drug therapy; Z91.041 Radiographic dye allergy status
CPT/HCPCS: 36415; 71045; 71260; 80053; 83735; 83880; 84484; 85025; 85379; 93005; 93010; 94640; 99285-25; A9270; Q9967